=== PATIENT | male | born 1960 | race Caucasian/White ===

== ENCOUNTER → 2018-02-13 18:39 | Outpatient (CLI) | payer OTHER, MEDICAID, SELFPAY ==
--- NOTE | 2018-02-13 | DI.MRI.S_ITS ---
PROCEDURE: MR CERVICAL SPINE WO CON INDICATIONS: CERVICAL SPINE PAIN TECHNIQUE: Noncontrast sagittal T1, T2, and axial T2 sequences of the cervical spine are obtained. Patient was unable to complete the remaining sequences of the examination. COMPARISON: None. FINDINGS: Image quality: Excellent. Alignment and Curvature: There is normal bony alignment. Bone Marrow: Marrow demonstrates normal overall signal. Mild reactive signal within the endplates adjacent to the C6-C7 intervertebral disc. Spinal Cord: Visualized spinal cord has normal size and signal. No cerebellar tonsillar herniation. Paraspinous Soft Tissues: No paravertebral masses. Prevertebral soft tissues are normal in thickness. C2-C3: Disc desiccation. Mild facet hypertrophy bilaterally. Mild canal stenosis. Mild bilateral foraminal stenosis. C3-C4: Congenital canal stenosis. Mild disc loss and desiccation. Mild diffuse disc bulge with superimposed right paracentral and posterolateral disc protrusion. Mild bilateral facet and uncovertebral hypertrophy. Moderate canal stenosis. Mild bilateral foraminal stenosis. Minimal cord flattening. C4-C5: Congenital canal stenosis. Mild disc desiccation and minimal diffuse disc bulge. Mild facet hypertrophy. Mild canal stenosis. Mild bilateral foraminal stenosis. C5-C6: Moderate disc height loss and desiccation. Mild diffuse disc bulge. Congenital canal stenosis. Bilateral facet hypertrophy. Moderate canal stenosis. Mild foraminal stenosis bilaterally. C6-C7: Congenital canal stenosis. Moderate disc height loss and desiccation. Mild diffuse disc bulge. Mild facet hypertrophy bilaterally. Moderate to severe canal stenosis. Minimal cord flattening. Mild foraminal stenosis bilaterally. C7-T1: Normal appearance. IMPRESSION: 1. Limited examination secondary to patient's inability to complete the examination. 2. Diffuse congenital canal stenosis with superimposed degenerative disc and facet disease. 3. Multilevel canal stenoses, worst at C3-C4 and C6-C7, where there is mild cord flattening present. 4. Mild multilevel foraminal stenoses. Dictated by: Isadora Loredo M.D. on 02/14/2018 at 8:54 Approved by: Isadora Loredo M.D. on 02/14/2018 at 8:59
== END ==
PROVIDERS: Visit Provider Orthopaedic Surgery Orthopaedic Surgery of the Spine
DX: M48.02 Spinal stenosis, cervical region (principal); M50.21 Other cervical disc displacement, high cervical region
CPT/HCPCS: 72141

== ENCOUNTER → 2018-05-30 11:10 | Outpatient (CLI) | payer OTHER, MEDICAID, SELFPAY ==
[2018-05-30 12:38] LABS: Add Manual Diff / Slide Review NO; Basophils Absolute Auto 100 /uL (0-100); Basophils Percent Auto 1.2 % (0-2); Eosinophils Absolute Auto 100 /uL (0-450); Hematocrit 46.4 % (41-53); Hemoglobin 15.7 g/dL (13.5-17.5); Lymphocytes Absolute Auto 1800 /uL (1100-4500); Lymphocytes Percent Auto 34.7 % (25-40); Mean Corpuscular HGB Conc 33.9 % (30-36); Mean Corpuscular Hemoglobin 29.2 PG (26-34); Mean Corpuscular Volume 86.1 fL (80-100); Monocytes Absolute Auto 400 /uL (0-900); Monocytes Percent Auto 7.9 % (3-14); Neutrophils Absolute Auto 2800 /uL (1500-7000); Neutrophils Percent Auto 54.2 % (50-75); Platelet Count 221 X10^3/uL (150-400); Red Blood Cell Count 5.39 X10^6/uL (4.5-5.9); Red Cell Distribution Width 13.1 % (11.6-14.8); White Blood Cell Count 5.1 X10^3/uL (4.5-11.0)
[2018-05-30 12:50] LABS: Alanine Aminotransferase 61 IU/L (21-72); Albumin 4.9 g/dL (3.5-5.0); Albumin Globulin Ratio 1.4 (1.0-2.8); Alkaline Phosphatase 69 U/L (38-126); Aspartate Aminotransferase 32 IU/L (17-59); BUN Creatinine Ratio 13.8 (6-22); Bilirubin Total 0.8 mg/dL (0.2-1.3); Blood Urea Nitrogen 11 mg/dL (9-20); Calcium 9.6 mg/dL (8.4-10.2); Carbon Dioxide 24 mmol/L (22-32); Chloride 103 mmol/L (98-107); Cholesterol 189 mg/dL (140-199); Estimated Glomerular Filt Rate > 60.0 mL/min (>60); Globulin 3.5 g/dL (1.7-4.1); Glucose 123 mg/dL (70-100); HDL Cholesterol 41 mg/dL (40-60); HEMOLYSIS < 15 (0-50); LDL Cholesterol Calculated 106 mg/dL (<100); Potassium 4.6 mmol/L (3.4-5.1); Sodium 140 mmol/L (137-145); Total Protein 8.4 g/dL (6.3-8.2); Triglycerides 211 mg/dL (35-150)
[2018-05-30 13:08] LABS: Free T4, Direct Thyroxine 1.39 ng/dL (0.78-2.19)
[2018-05-30 13:20] LABS: Prostate Specific Antigen Scrn 0.402 ng/mL (0.1-4.0)
[2018-05-30 13:21] LABS: Thyroid Stimulating Hormone 2.68 uIU/mL (0.47-4.68)
== END ==
PROVIDERS: PCP Family Medicine; Visit Provider Family Medicine
DX: E03.9 Hypothyroidism, unspecified (principal); E66.9 Obesity, unspecified; Z13.220 Encounter for screening for lipoid disorders; Z51.81 Encounter for therapeutic drug level monitoring; Z12.5 Encounter for screening for malignant neoplasm of prostate
CPT/HCPCS: 36415; 80053; 80061; 84439; 84443; 85025; G0103

== ENCOUNTER 2018-08-04 10:30 | Outpatient (RCR) | payer OTHER, MEDICAID, SELFPAY ==
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
--- NOTE | 2018-03-25 17:18 | PT.OPPOC ---
Current Diagnoses Other secondary scoliosis, lumbar region (03/24/18) Other spondylosis with radiculopathy, cervical region (03/24/18) Muscle weakness (generalized) (03/24/18) Other abnormalities of gait and mobility (03/24/18) Other symptoms and signs involving the musculoskeletal system (03/24/18) Provider Visit Care Team Role Provider Type Kate Singleton MD Attending Provider Physician Specialty: Orthopedic Surgery Address: [address] [place] [address], [phone] Email: [email or web address] Plan Of Care PT-OP-T Assessment and Plan Start: 03/24/18 16:28 Freq: Status: Active Protocol: Document 03/24/18 11:36 LRN (Rec: 03/24/18 17:00 LRN [id number]) Physical Therapy Assessment Rehab Potential Rehabilitation Potential Fair Evaluation Complexity Number of Personal Factors/Comorbidities 1-2 Number of Body Systems Impaired 3 Clinical Presentation at Evaluation Evolving Impairments Impairments Activity Tolerance Functional Activities Functional Mobility Gait Pain Posture ROM Soft Tissue Mobility Strength Other Concerns Fall Risk No Age Related Concerns Effect of injury on self and home. Barriers to Rehabilitation Chronicity of condition Goals Four Impairment Severe pain causing the pt to focus on his pain preventing project work Prison Goal (LTG) Pt will be able to concentrate on home/work projects with reduction of general pain. Three Impairment Decreased hip rotation mobility limiting ability to dress (don socks) Short Term Goal (STG) Pt will improve his hip ER mobility to be able to don his socks with less difficulty. STG Duration 05/14/09 Two Impairment R hip pain limiting ability to walk Prison Goal (LTG) Pt will be able to walk to and from a grocery store and shop with the use of a shopping cart. LTG Duration 06/16/18 One Impairment Lacks self care HEP Science Technician Goal (LTG) Pt will be independent with a self care HEP LTG Duration 06/16/18 Assessment Summary Assessment Pt presents with complaints of full body pain in the neck, shoulders, trunk, hips, and lower extremities that is variable based on location between 0-8/10, with 10 being worst possible pain. The pt would like to focus first on improving his walking ability by decreasing his R hip pain. He is limited in trunk mobility and to a lesser extent cervical mobility. He is only able to actively perform shoulder ER to neutral in sitting, presenting like a rotator cuff injury, and he is quite limited in his ability to reach overhead. The pt is limited in visits by his insurance; therefore achieving his goals may be difficult. The pt may benefit from treatment starting at 2x /week and decrease to 1x/week once he has been started on a home program. The pt will benefit from skilled physical therapy to decrease pain, improve function and progress onto a self care program of home and aquatic exercises. Physical Therapy Plan Frequency and Duration Frequency of Treatment 2x/Week Plan of Care Start Date 03/24/18 Plan of Care End Date 06/16/18 Therapeutic Interventions Therapeutic Interventions Aquatic Therapy Home Exercise Program Manual Therapy Neuromuscular Re-education Patient/Caregiver Education Self-Care/Home Management Soft Tissue Mobilization Taping Therapeutic Activities Therapeutic Exercises Modalities Cold Pack/Ice Massage Electric Stimulation Hot Packs Next Visit Focus/Plan Next Note Type Treatment Note Next Visit Plan Check shoulder ER and hip rotation strength, gait training for level and stairs, initiate HEP: hip stretches, Fernando ext ex program, Core/ abdominal strengthening, ending CP. Focus on strengthening and normalizing posture with limited use of modalities and STM. Plan of Care Dates Plan of Care Start Date 03/24/18 Plan of Care End Date 06/16/18 Please Sign and Return: I have reviewed this Plan of Care and certify that the skilled therapy services above are required to meet the patient?s needs. Physician Signature Date Printed Name and Credentials Clinical Instructor Signature Printed Name and Credentials
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
--- NOTE | 2018-12-09 12:26 | PT-OP ANOTE ---
Pt has received a new referral from another physician; therefore pt will need to be discharged from therapy for new referral.
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
== END 2018-12-10 14:09 | disposition home or self-care (01) ==
LOC: PHYS 10:30
PROVIDERS: Visit Provider Orthopaedic Surgery Orthopaedic Surgery of the Spine
DX: M47.22 Other spondylosis with radiculopathy, cervical region (principal); M41.56 Other secondary scoliosis, lumbar region
CPT/HCPCS: 97010; 97014; 97110; 97140; 97162; 97535; G0283

== ENCOUNTER → 2018-11-20 12:35 | Outpatient (CLI) | payer OTHER, MEDICAID, SELFPAY ==
[2018-11-20 13:15] LABS: Hematocrit 40.9 % (41-53); Hemoglobin 14.2 g/dL (13.5-17.5); Mean Corpuscular HGB Conc 34.6 % (30-36); Mean Corpuscular Hemoglobin 29.5 PG (26-34); Mean Corpuscular Volume 85.1 fL (80-100); Platelet Count 248 X10^3/uL (150-400); Red Blood Cell Count 4.81 X10^6/uL (4.5-5.9); Red Cell Distribution Width 12.5 % (11.6-14.8); White Blood Cell Count 5.1 X10^3/uL (4.5-11.0)
[2018-11-20 13:41] LABS: Hemoglobin A1C% w Est Avg Glu 6.1 % (4.0-6.0)
== END ==
PROVIDERS: PCP Family Medicine; Visit Provider Family Medicine
DX: E03.9 Hypothyroidism, unspecified (principal); R73.9 Hyperglycemia, unspecified; E66.9 Obesity, unspecified; R53.83 Other fatigue; Z51.81 Encounter for therapeutic drug level monitoring
CPT/HCPCS: 36415; 83036; 84403; 85027

== ENCOUNTER → 2019-09-29 10:26 | Outpatient (CLI) | payer OTHER, MEDICAID, SELFPAY ==
[2019-09-29 11:31] LABS: Add Manual Diff / Slide Review NO; Basophils Absolute Auto 0 /uL (0-100); Basophils Percent Auto 0.9 % (0-2); Eosinophils Absolute Auto 100 /uL (0-450); Eosinophils Percent Auto 1.8 % (2-4); Hematocrit 43.7 % (41-53); Hemoglobin 14.9 g/dL (13.5-17.5); Lymphocytes Absolute Auto 1600 /uL (1100-4500); Lymphocytes Percent Auto 33.3 % (25-40); Mean Corpuscular HGB Conc 34.1 % (30-36); Mean Corpuscular Hemoglobin 29.5 PG (26-34); Mean Corpuscular Volume 86.5 fL (80-100); Monocytes Absolute Auto 400 /uL (0-900); Monocytes Percent Auto 9.2 % (3-14); Neutrophils Absolute Auto 2600 /uL (1500-7000); Neutrophils Percent Auto 54.8 % (50-75); Platelet Count 215 X10^3/uL (150-400); Red Blood Cell Count 5.05 X10^6/uL (4.5-5.9); Red Cell Distribution Width 13.4 % (11.6-14.8); White Blood Cell Count 4.8 X10^3/uL (4.5-11.0)
[2019-09-29 12:06] LABS: Alanine Aminotransferase 34 IU/L (<50); Albumin 4.5 g/dL (3.5-5.0); Albumin Globulin Ratio 1.5 (1.0-2.8); Alkaline Phosphatase 70 U/L (38-126); Aspartate Aminotransferase 26 IU/L (17-59); BUN Creatinine Ratio 13.1 (6-22); Bilirubin Total 0.7 mg/dL (0.2-1.3); Blood Urea Nitrogen 11 mg/dL (9-20); Calcium 9.6 mg/dL (8.4-10.2); Carbon Dioxide 27 mmol/L (22-32); Chloride 104 mmol/L (98-107); Cholesterol 167 mg/dL (140-199); Estimated Glomerular Filt Rate > 60.0 mL/min (>60); Glucose 135 mg/dL (70-100); HDL Cholesterol 37 mg/dL (40-60); HEMOLYSIS < 15 (0-50); LDL Cholesterol Calculated 103 mg/dL (<100); Potassium 4.6 mmol/L (3.4-5.1); Sodium 139 mmol/L (137-145); Total Protein 7.5 g/dL (6.3-8.2); Triglycerides 136 mg/dL (35-150)
[2019-09-29 12:15] LABS: Vitamin D 25 Hydroxy (D3) 47.7 ng/mL (30.0-100.0)
[2019-09-29 12:17] LABS: Free T3, Triiodothyronine Free 3.56 pg/mL (2.77-5.27)
[2019-09-29 12:31] LABS: Thyroid Stimulating Hormone 3.29 uIU/mL (0.47-4.68)
[2019-09-29 12:32] LABS: Prostate Specific Antigen 0.322 ng/mL (0.10-4.00)
[2019-09-30 12:18] LABS: Hemoglobin A1C% w Est Avg Glu 6.4 % (4.0-6.0)
[2019-10-03 17:07] LABS: Testosterone Free 5.38 ng/dL (5.00-21.00); Testosterone Total 179.4 ng/dL (264.0-916.0)
== END ==
PROVIDERS: Nurse Practitioner Family; PCP Family Medicine; Referring Provider Family Medicine; Visit Provider Family Medicine
DX: Z12.5 Encounter for screening for malignant neoplasm of prostate (principal); R53.83 Other fatigue; R79.89 Other specified abnormal findings of blood chemistry; E03.9 Hypothyroidism, unspecified; Z13.220 Encounter for screening for lipoid disorders; Z68.41 Body mass index [BMI] 40.0-44.9, adult; R73.09 Other abnormal glucose
CPT/HCPCS: 36415; 80053; 80061; 82306; 83036; 84153; 84402; 84403; 84439; 84443; 84481; 85025

== ENCOUNTER → 2020-02-10 13:03 | Outpatient (CLI) | payer OTHER, MEDICAID, SELFPAY ==
[2020-02-16 07:17] LABS: Percent Free Testosterone 4.54 % (1.50-4.20); Testosterone Free 21.13 ng/dL (5.00-21.00); Testosterone Total 465.4 ng/dL (264.0-916.0)
== END ==
PROVIDERS: PCP Family Medicine; Referring Provider Family Medicine; Visit Provider Family Medicine
DX: E29.1 Testicular hypofunction (principal)
CPT/HCPCS: 36415; 84402; 84403

== ENCOUNTER → 2020-02-16 11:28 | Outpatient (CLI) | payer OTHER, MEDICAID, SELFPAY ==
[2020-02-16 13:12] LABS: Add Manual Diff / Slide Review NO; Basophils Absolute Auto 100 /uL (0-100); Basophils Percent Auto 1.1 % (0-2); Eosinophils Absolute Auto 100 /uL (0-450); Eosinophils Percent Auto 1.9 % (2-4); Hematocrit 47.4 % (41-53); Hemoglobin 15.6 g/dL (13.5-17.5); Lymphocytes Absolute Auto 1500 /uL (1100-4500); Lymphocytes Percent Auto 26.8 % (25-40); Mean Corpuscular HGB Conc 32.9 % (30-36); Mean Corpuscular Hemoglobin 29.3 PG (26-34); Mean Corpuscular Volume 88.9 fL (80-100); Monocytes Absolute Auto 500 /uL (0-900); Monocytes Percent Auto 8.9 % (3-14); Neutrophils Absolute Auto 3500 /uL (1500-7000); Neutrophils Percent Auto 61.3 % (50-75); Platelet Count 227 X10^3/uL (150-400); Red Blood Cell Count 5.34 X10^6/uL (4.5-5.9); Red Cell Distribution Width 13.5 % (11.6-14.8); White Blood Cell Count 5.7 X10^3/uL (4.5-11.0)
[2020-02-16 13:23] LABS: Hemoglobin A1C% w Est Avg Glu 6.1 % (4.0-6.0)
[2020-02-16 13:45] LABS: Alanine Aminotransferase 36 IU/L (<50); Albumin 4.4 g/dL (3.5-5.0); Albumin Globulin Ratio 1.4 (1.0-2.8); Alkaline Phosphatase 70 U/L (38-126); Aspartate Aminotransferase 30 IU/L (17-59); BUN Creatinine Ratio 8.9 (6-22); Bilirubin Total 0.9 mg/dL (0.2-1.3); Blood Urea Nitrogen 8 mg/dL (9-20); Carbon Dioxide 32 mmol/L (22-32); Chloride 102 mmol/L (98-107); Cholesterol 158 mg/dL (140-199); Estimated Glomerular Filt Rate > 60.0 mL/min (>60); Globulin 3.2 g/dL (1.7-4.1); Glucose 122 mg/dL (70-100); HDL Cholesterol 29 mg/dL (40-60); HEMOLYSIS < 15 (0-50); LDL Cholesterol Calculated 99 mg/dL (<100); Potassium 4.6 mmol/L (3.4-5.1); Sodium 138 mmol/L (137-145); Total Protein 7.6 g/dL (6.3-8.2); Triglycerides 149 mg/dL (35-150)
[2020-02-16 14:01] LABS: Free T3, Triiodothyronine Free 4.14 pg/mL (2.77-5.27); Free T4, Direct Thyroxine 1.44 ng/dL (0.78-2.19)
[2020-02-16 14:14] LABS: Thyroid Stimulating Hormone 2.45 uIU/mL (0.47-4.68)
== END ==
PROVIDERS: PCP Family Medicine; Referring Provider Family Medicine; Visit Provider Family Medicine
DX: E03.9 Hypothyroidism, unspecified (principal); E29.1 Testicular hypofunction; E55.9 Vitamin D deficiency, unspecified; E78.6 Lipoprotein deficiency; R73.03 Prediabetes; Z68.41 Body mass index [BMI] 40.0-44.9, adult
CPT/HCPCS: 36415; 80053; 80061; 82306; 83036; 84439; 84443; 84481; 85025

== ENCOUNTER → 2020-03-18 13:32 | Outpatient (CLI) | payer OTHER, MEDICAID, SELFPAY ==
[2020-03-23 05:13] LABS: Testosterone Free 17.42 ng/dL (5.00-21.00)
== END ==
PROVIDERS: PCP Family Medicine; Referring Provider Family Medicine; Visit Provider Family Medicine
DX: E29.1 Testicular hypofunction (principal)
CPT/HCPCS: 36415; 84402; 84403

== ENCOUNTER 2020-04-14 12:45 | Outpatient (RCR) | payer OTHER, MEDICAID, SELFPAY ==
--- NOTE | 2019-11-23 17:51 | PT.OPPOC ---
Physical, Occupational & Speech Therapy At [facility] Current Diagnoses Primary osteoarthritis, right shoulder (11/23/19) Muscle weakness (generalized) (11/23/19) Abnormal posture (11/23/19) Visit Care Team Role Provider Type Cristofer Alvarez DO Primary Care Provider Physician Specialty: Family Practice Address: [address] [place] [address], [address] Email: Devon Patterson MD Attending Provider Physician Referring Provider Specialty: Orthopedic Surgery Address: [address] [place] [address], [address] Email: [email or web address] Plan Of Care PT-OP-T Assessment and Plan Start: 11/20/19 20:07 Freq: Status: Active Protocol: Document 11/23/19 09:06 LRN (Rec: 11/23/19 20:30 LRN [id number]) Physical Therapy Assessment Rehab Potential Rehabilitation Potential Good Evaluation Complexity Number of Personal Factors/Comorbidities 3 or More Number of Body Systems Impaired 4 or More Clinical Presentation at Evaluation Evolving Impairments Impairments Activity Tolerance,Pain, Posture,ROM,Soft Tissue Mobility,Strength Other Impairments BMI 40-44.9 Goals Four Impairment R shoulder pain rated 0-3/10. Short Term Goal (STG) Pt will be able to take his T- shirt off with pain no greater than 1/10. STG Duration 01/30/20 [employer] Mill Worker Goal (LTG) Pt will decrease pain to on greater than 1/10 with reaching activities. LTG Duration 02/21/20 Three Impairment Decreased R shoulder strength Short Term Goal (STG) Pt will be able to lift > 5# with both arms without an increase in pain no greater than 1/10. Custodial Goal (LTG) Pt will increase R shoulder strength to 4/5 (except ER) to decrease sleep disturbance to 6 at night. LTG Duration 02/21/20 Two Impairment Decreased R shoulder mobility Paper And Pulp Mill Worker Goal (LTG) Improve R shoulder mobility so that pt will be able to wash the top of his head. LTG Duration 02/21/20 One Impairment Lacks self care HEP Custodial Goal (LTG) Pt will be independent with a self care HEP LTG Duration 02/21/20 Assessment Summary Assessment Pt presents with R shoulder pain that has improved quite a bit according to the pt since receiving 2 cortisone injections in his shoulder and back 3 weeks ago. The pt presents today with poor scapulohumeral rhythm due to muscle imbalance of his rotator cuff muscles bilaterally. He is not able to actively externally rotate his arm beyond neutral both active and passively due to pain. It is unknown what type of muscle dysfunction he has without imaging information. The pt also presents with a mechanical dysfunction of the spine that will hinder his progress. The pt is also interested in having physical therapy for his hips in hopes of resuming walking activities ; therefore perhaps after his shoulder program he could be assessed for appropriateness of a rehab program for his hips. The pt is limited in his insurance benefits; therefore he will be progressed as far as he can tolerate and will be educated in a HEP to promote ongoing improvement with self care. The pt will benefit from skilled physical therapy to improve his shoulder strength and mobility and for education on a self care HEP. Physical Therapy Plan Frequency and Duration Frequency of Treatment 2x/Week Plan of Care Start Date 11/23/19 Plan of Care End Date 02/21/20 Therapeutic Interventions Therapeutic Interventions Home Exercise Program,Manual Therapy,Neuromuscular Re- education,Patient/Caregiver Education,Self-Care/Home Management,Soft Tissue Mobilization,Taping, Therapeutic Activities, Therapeutic Exercises Modalities Cold Pack/Ice Massage,Electric Stimulation,Hot Packs Other Referrals/Consults Referrals/Consults Recommended Recommend medical assessment for his hips for appropriateness of PT for rehabilitation. Next Visit Focus/Plan Next Note Type Treatment Note Next Visit Plan Initiate gentle rotator cuff and scapular stabilization strengthening exercises, progressing the pt onto a HEP. Modalities as needed for pain management (cryotherapy or heat), STM for neck/upper back and aerobic ex to improve functional use of UE's. Plan of Care Dates Plan of Care Start Date 11/23/19 Plan of Care End Date 02/21/20 Electronically Signed by: Rosa James, PT 11/25/19 [id number] Please Sign and Return: I have reviewed this Plan of Care and certify that the skilled therapy services above are required to meet the patient?s needs. Physician Signature Date Printed Name and Credentials Clinical Instructor Signature Printed Name and Credentials
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
--- NOTE | 2019-12-25 10:26 | PT-OP ANOTE ---
Pt DNS, unable to reach pt by phone to remind of next appt, due to full mailbox.
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
== END 2020-04-22 14:33 ==
LOC: PHYS 12:45
PROVIDERS: PCP Family Medicine; Referring Provider Orthopaedic Surgery; Visit Provider Orthopaedic Surgery
DX: M19.011 Primary osteoarthritis, right shoulder (principal); M62.81 Muscle weakness (generalized); R29.3 Abnormal posture; M19.012 Primary osteoarthritis, left shoulder; M16.11 Unilateral primary osteoarthritis, right hip; M43.02 Spondylolysis, cervical region; M43.06 Spondylolysis, lumbar region
CPT/HCPCS: 97014; 97110; 97162; 97164; 97535; G0283

== ENCOUNTER 2020-07-14 14:09 | Emergency (ER) | payer OTHER, MEDICAID, SELFPAY ==
[2020-07-14 14:18] VITALS: BP 158/94; PULSE 84; RESP 17; TEMP 36.6; O2SAT 95; BMI 40.1
--- NOTE | 2020-07-14 14:26 | ED.BACK ---
HPI - Back Pain/Injury General Chief Complaint: Back Pain/Injury Stated Complaint: thinks he has kidney stones past week Time Seen by Provider: 07/14/20 14:11 Source: patient Mode of arrival: Ambulatory Limitations: no limitations History of Present Illness HPI Narrative: Patient is a 60-year-old male here for evaluation of occasional left-sided flank pain and urinary hesitancy. He states that it has been going on for the past several weeks. Has been occasional during this time. No fevers. He has had kidney stones in the past and he states this feels very much like prior kidney stone. He denies any blood in his urine. Has no abdominal tenderness. He is here making sure that he does not have a urinary tract infection that would require antibiotics. Related Data Home Medications Medication Instructions Recorded Confirmed [MAgnesium] #0 07/10/17 06/02/20 [Vitamin B] #0 07/10/17 06/02/20 ascorbic acid (vitamin C) 500 mg mg PO cap 08/20/17 06/02/20 capsule cholecalciferol (vitamin D3) 50 2,000 unit PO DAILY 08/20/17 06/02/20 mcg (2,000 unit) capsule iodine 150 mcg tablet mcg PO tab 12/02/18 06/02/20 levothyroxine 50 mcg PO DAILY 07/14/20 07/14/20 Previous Rx's Medication Instructions Recorded testosterone cypionate 200 mg/mL 200 mg IM Q2W #1 ml 03/29/20 intramuscular oil Allergies Allergy/AdvReac Type Severity Reaction Status Date / Time codeine [CODEINE] Allergy Intermediate Racing Verified 07/14/20 14:23 heart Review of Systems Constitutional Constitutional: Denies fever(s) and Denies headache(s) ENT Ears, Nose, Mouth, and Throat: Denies headache(s) Cardiovascular Cardiovascular: Denies chest pain and Denies dyspnea Respiratory Respiratory: Denies dyspnea Gastrointestinal Gastrointestinal: Reports abdominal pain, Denies nausea and Denies vomiting Integumentary/Breasts Skin/Breast: Denies rash Neurologic Neurologic: Denies behavioral changes and Denies headache(s) Psychiatric Psychiatric: Denies behavioral changes Hematologic/Lymphatic On Anticoagulants: No Allergic/Immunologic Allergic/Immunologic: Denies urticaria Patient History Medical History Acne (Unknown) Acute pain of right knee Ankle pain (2015) BMI 40.0-44.9, adult Cervical somatic dysfunction Cervical spine disease (2015) Chickenpox (~1965) Chronic back pain (2015) Chronic right hip pain Chronic thoracic back pain Cranial somatic dysfunction Foot pain (2018) Greater trochanteric bursitis of right hip Hypogonadism in male Hypothyroidism (Unknown) Iliotibial band syndrome, right leg Kidney stones (~1989) Knee pain (2015) Low back pain of over 3 months duration Low HDL (under 40) Lumbar region somatic dysfunction Mumps (1968) Pelvic somatic dysfunction Pelvic somatic dysfunction Postconcussion syndrome Pre-diabetes Sacral region somatic dysfunction Screening for hyperlipidemia Segmental and somatic dysfunction of abdomen and other regions Segmental and somatic dysfunction of lower extremity Segmental and somatic dysfunction of lumbar region Segmental and somatic dysfunction of sacral region Segmental and somatic dysfunction of thoracic region Shoulder pain (2014) Upper extremity somatic dysfunction Vestibular dysfunction Vitamin D deficiency Weight loss counseling, encounter for Surgical History Hx of appendectomy (1976) Hx of tonsillectomy (1978) Family History (Updated 10/30/17 @ 10:37 by Kalani Ortega LPN) Brother Age: 54 Back problem Father Age: 85 Parkinson disease Celiac disease Mother Age: 79 Diabetes mellitus Hypothyroid Sister Thyroid condition Grandfather Rheumatoid arthritis Grandmother Diabetes mellitus Hypothyroid Grandmother No problems noted. Social History Smoking Status: Never smoker Smoking Status: Never smoker alcohol intake frequency: other Substance Use Type: does not use Exam Initial Vital Signs Initial Vital Signs: Vital Signs Temperature 97.8 F 07/14/20 14:18 Pulse Rate 84 07/14/20 14:18 Respiratory Rate 17 07/14/20 14:18 Blood Pressure 158/94 H 07/14/20 14:18 Pulse Oximetry 95 07/14/20 14:18 Const General: cooperative and comfortable Limitations: mental status not altered HENMT Head: normal to inspection and normocephalic Resp Effort & Inspection: normal respiratory effort GI Inspection: non-distended Palpation: soft, No firm and No tender Back/Spine/Pelvis Back: No CVA tenderness Skin Rashes: no rashes Neuro General: patient alert and patient awake Cognition: normal cognition Speech: speech normal Extrem General: capillary refill normal Psych Appearance: grossly normal and well kempt Course Orders Ordered: ED Orders 07/14/20 14:11 Basic Metabolic Panel Stat Complete Blood Count AUTO DIFF Stat Vital Signs Vital signs: Vital Signs - 8 hr 07/14/20 14:18 Temperature 97.8 F Pulse Rate 84 Respiratory Rate 17 Blood Pressure 158/94 H Pulse Oximetry 95 MDM - Back Pain/Injury Lab Data Attestation: I reviewed the patient's lab results. Labs: Urine Dip Bedside Urine Glucose Negative Bedside Urine Bilirubin - Negative Bedside Urine Ketone - Negative Urine Specific [place] 1.030 Bedside Urine Occult Blood - Negative Bedside Urine pH 6.0 Bedside Urine Protein - Negative Bedside Urine Urobilinogen - Negative Bedside Urine Nitrite - Negative Bedside Urine Leukocytes - Negative Esterase MDM Narrative Medical decision making narrative: Patient's urinalysis today does not show any signs of infection. Also does not have any blood in his urine I discussed with him that he still could potentially be having kidney stones potentially he is having multiple small stones that he is passing on a regular basis. We discussed that we would not know this definitively unless we did a CT scan. He expressed understanding of this boat like to hold on any radiologic studies for now. He states that long as he does not need any antibiotics based on full we have done so far that he would rather be discharged home or return to the emergency department things worsen. He was given return precautions. He expressed understanding agreement. Discharge Plan Departure Patient Disposition: Home Clinical Impression: Side pain Instructions: DI for Kidney Stones Activity Restrictions/Additional Instructions: Continue all of your medications as directed. Contact her primary provider for follow-up. Return to the emergency department for any new or worsening symptoms. Prescriptions: No Action ascorbic acid (vitamin C) 500 mg capsule PO RF: 0 cholecalciferol (vitamin D3) 2,000 unit capsule 2,000 unit PO DAILY RF: 0 [MAgnesium] Qty: 0 RF: 0 [Vitamin B] Qty: 0 RF: 0 iodine 150 mcg tablet PO RF: 0 testosterone cypionate [Depo-Testosterone] 200 mg/mL oil 200 mg IM Q2W Qty: 1 RF: 5 levothyroxine 50 mcg tablet 50 mcg PO DAILY RF: 0 Referrals: Cristofer Alvarez DO [Primary Care Provider] -
== END 2020-07-14 14:41 | disposition home or self-care (01) ==
PROVIDERS: Emergency Provider Emergency Medicine; PCP Family Medicine
DX: M54.9 Dorsalgia, unspecified (principal)
CPT/HCPCS: 81003; 99281; 99283

== ENCOUNTER → 2020-08-15 13:08 | Outpatient (CLI) | payer OTHER, MEDICAID, SELFPAY ==
--- NOTE | 2020-08-15 13:09 | DI.US.S_ITS ---
ULTRASOUND OF LEFT AXILLA: 08/15/2020 CLINICAL: Palpable left axilla lump. No prior exams were available for comparison. Color flow and real-time ultrasound of the left axilla were performed. Vazquez scale images of the real-time examination were reviewed. There is a 0.4 cm x 0.3 cm x 0.2 cm superficial oval cyst in the left axilla. This oval cyst is hypoechoic with no posterior acoustic shadowing or enhancement. This correlates as palpated. Color flow imaging demonstrates that there is an adjacent vascularity. IMPRESSION: BENIGN There is no sonographic evidence of malignancy. The 0.4 cm superficial oval cyst or skin lesion is most likely a sebaceous cyst and is benign. Patient reports an interval decrease in size. Exam findings were conveyed to the patient. Patient is advised to monitor for significant change. Clinical follow-up is recommended. This exam was interpreted at Station ID: [id number]. Electronically Signed By: Edis Hinson M.D. slc/:08/15/2020 14:03:38 letter sent: Clinical Evaluation Ultrasound BI-RADS: 2 Benign
== END ==
PROVIDERS: PCP Family Medicine; Referring Provider Registered Nurse Diabetes Educator; Visit Provider Registered Nurse Diabetes Educator
DX: R22.32 Localized swelling, mass and lump, left upper limb (principal); L72.9 Follicular cyst of the skin and subcutaneous tissue, unspecified
CPT/HCPCS: 76882

== ENCOUNTER → 2022-01-11 09:48 | Outpatient (CLI) | payer OTHER, MEDICAID, SELFPAY ==
[2022-01-11 10:45] LABS: Add Manual Diff / Slide Review NO; Basophils Absolute Auto 100 /uL (0-100); Basophils Percent Auto 1.2 % (0-2); Eosinophils Absolute Auto 200 /uL (0-450); Eosinophils Percent Auto 3.4 % (2-4); Hematocrit 43.4 % (41-53); Hemoglobin 14.8 g/dL (13.5-17.5); Lymphocytes Absolute Auto 1700 /uL (1100-4500); Lymphocytes Percent Auto 34.3 % (25-40); Mean Corpuscular HGB Conc 34.1 % (30-36); Mean Corpuscular Hemoglobin 29.5 PG (26-34); Mean Corpuscular Volume 86.5 fL (80-100); Monocytes Absolute Auto 500 /uL (0-900); Monocytes Percent Auto 9.6 % (3-14); Neutrophils Absolute Auto 2500 /uL (1500-7000); Neutrophils Percent Auto 51.5 % (50-75); Platelet Count 218 X10^3/uL (150-400); Red Blood Cell Count 5.02 X10^6/uL (4.5-5.9); Red Cell Distribution Width 13.7 % (11.6-14.8); White Blood Cell Count 4.8 X10^3/uL (4.5-11.0)
[2022-01-11 11:01] LABS: Hemoglobin A1C% w Est Avg Glu 6.1 % (4.0-6.0)
[2022-01-11 11:07] LABS: Alanine Aminotransferase 37 IU/L (<50); Albumin 4.4 g/dL (3.5-5.0); Albumin Globulin Ratio 1.4 (1.0-2.8); Alkaline Phosphatase 69 U/L (38-126); Aspartate Aminotransferase 26 IU/L (17-59); BUN Creatinine Ratio 18.3 (6-22); Bilirubin Total 0.7 mg/dL (0.2-1.3); Blood Urea Nitrogen 15 mg/dL (9-20); Calcium 9.2 mg/dL (8.4-10.2); Carbon Dioxide 25 mmol/L (22-32); Chloride 105 mmol/L (98-107); Cholesterol 189 mg/dL (140-199); Estimated Glomerular Filt Rate > 60 mL/min (>60); Globulin 3.2 g/dL (1.7-4.1); Glucose 131 mg/dL (80-110); HDL Cholesterol 44 mg/dL (40-60); HEMOLYSIS < 15 (0-50); LDL Cholesterol Calculated 118 mg/dL (<100); Potassium 4.5 mmol/L (3.4-5.1); Sodium 142 mmol/L (137-145); Total Protein 7.6 g/dL (6.3-8.2); Triglycerides 133 mg/dL (35-150)
[2022-01-11 11:34] LABS: TSH w/ Reflex to FT4 2.73 uIU/mL (0.47-4.68)
== END ==
PROVIDERS: PCP Family Medicine; Referring Provider Family Medicine; Visit Provider Family Medicine
DX: E03.9 Hypothyroidism, unspecified (principal); E78.6 Lipoprotein deficiency; R73.03 Prediabetes; Z13.220 Encounter for screening for lipoid disorders
CPT/HCPCS: 36415; 80053; 80061; 83036; 84443; 85025

== ENCOUNTER → 2022-12-14 16:56 | Outpatient (CLI) | payer OTHER, MEDICAID, SELFPAY | PROVIDERS: PCP Family Medicine; Visit Provider Physician Assistant | DX: M54.9 Dorsalgia, unspecified (principal) | CPT/HCPCS: 81002; 87086 ==

== ENCOUNTER → 2022-12-25 16:43 | Outpatient (CLI) | payer OTHER, MEDICAID, SELFPAY ==
[2022-12-25 17:10] LABS: Add Manual Diff / Slide Review NO; Basophils Absolute Auto 100 /uL (0-100); Basophils Percent Auto 0.9 % (0-2); Eosinophils Absolute Auto 100 /uL (0-450); Hematocrit 44.3 % (41-53); Hemoglobin 14.9 g/dL (13.5-17.5); Lymphocytes Absolute Auto 1500 /uL (1100-4500); Lymphocytes Percent Auto 12.8 % (25-40); Mean Corpuscular HGB Conc 33.7 % (30-36); Mean Corpuscular Hemoglobin 28.9 PG (26-34); Mean Corpuscular Volume 85.8 fL (80-100); Monocytes Absolute Auto 1100 /uL (0-900); Neutrophils Absolute Auto 9000 /uL (1500-7000); Neutrophils Percent Auto 76.3 % (50-75); Platelet Count 307 X10^3/uL (150-400); Red Blood Cell Count 5.17 X10^6/uL (4.5-5.9); Red Cell Distribution Width 13.1 % (11.6-14.8); White Blood Cell Count 11.8 X10^3/uL (4.5-11.0)
[2022-12-25 17:46] LABS: Alanine Aminotransferase 24 IU/L (<50); Albumin 4.6 g/dL (3.5-5.0); Albumin Globulin Ratio 1.2 (1.0-2.8); Alkaline Phosphatase 87 U/L (38-126); Aspartate Aminotransferase 24 IU/L (17-59); BUN Creatinine Ratio 23.7 (6-22); Bilirubin Total 0.7 mg/dL (0.2-1.3); Blood Urea Nitrogen 22 mg/dL (9-20); Calcium 9.5 mg/dL (8.4-10.2); Carbon Dioxide 23 mmol/L (22-32); Chloride 101 mmol/L (98-107); Estimated Glomerular Filt Rate > 60 mL/min (>60); Globulin 3.9 g/dL (1.7-4.1); Glucose 149 mg/dL (80-110); HEMOLYSIS < 15 (0-50); Potassium 4.4 mmol/L (3.4-5.1); Sodium 137 mmol/L (137-145); Total Protein 8.5 g/dL (6.3-8.2)
== END ==
PROVIDERS: PCP Family Medicine; Referring Provider Physician Assistant; Visit Provider Physician Assistant
DX: B35.4 Tinea corporis (principal)
CPT/HCPCS: 36415; 80053; 83036; 85025

== ENCOUNTER → 2022-12-28 13:32 | Outpatient (CLI) | payer OTHER, MEDICAID, SELFPAY | PROVIDERS: PCP Family Medicine; Referring Provider Physician Assistant; Visit Provider Physician Assistant | DX: R21 Rash and other nonspecific skin eruption (principal); L53.9 Erythematous condition, unspecified; R73.03 Prediabetes; E03.9 Hypothyroidism, unspecified; E66.01 Morbid (severe) obesity due to excess calories; Z68.38 Body mass index [BMI] 38.0-38.9, adult | CPT/HCPCS: 99203; 99213 ==

== ENCOUNTER → 2022-12-31 17:36 | Outpatient (CLI) | payer OTHER, MEDICAID, SELFPAY | PROVIDERS: PCP Family Medicine; Visit Provider Student in an Organized Health Care Education/Training Program | DX: R10.9 Unspecified abdominal pain (principal) | CPT/HCPCS: 87086 ==

== ENCOUNTER → 2022-12-31 17:41 | Outpatient (CLI) | payer OTHER, MEDICAID, SELFPAY ==
--- NOTE | 2022-12-31 17:47 | DI.RAD.S_ITS ---
PROCEDURE: XR KUB INDICATIONS: R flank pain sharp intermittent hx ureterolith/ appendectomy TECHNIQUE: One view of the abdomen acquired. COMPARISON: None. FINDINGS: Surgical changes and devices: None. Bowel: Bowel gas pattern is normal. Soft tissues: No suspicious abdominal calcifications. Visualized solid organ contours appear normal in size. Bones: No suspicious bony lesions. Scoliotic curvature of the included spine with multilevel degenerative changes. IMPRESSION: Nonobstructive bowel gas pattern. No definite renal or ureteral calculus radiographically. Approved by: Vicetne Tamayo M.D. on 12/31/2022 at 18:37
== END ==
PROVIDERS: PCP Family Medicine; Referring Provider Student in an Organized Health Care Education/Training Program; Visit Provider Student in an Organized Health Care Education/Training Program
DX: R10.9 Unspecified abdominal pain (principal)
CPT/HCPCS: 74018; 81002; 87086

== ENCOUNTER → 2023-01-04 14:52 | Outpatient (CLI) | payer OTHER, MEDICAID, SELFPAY | PROVIDERS: PCP Family Medicine; Referring Provider Physician Assistant; Visit Provider Surgery | DX: L98.491 Non-pressure chronic ulcer of skin of other sites limited to breakdown of skin (principal); B35.6 Tinea cruris | CPT/HCPCS: 99213 ==

== ENCOUNTER → 2023-01-07 13:33 | Outpatient (CLI) | payer OTHER, MEDICAID, SELFPAY ==
[2023-01-07 17:10] LABS: TSH w/ Reflex to FT4 1.44 uIU/mL (0.47-4.68)
== END ==
PROVIDERS: PCP Family Medicine; Referring Provider Physician Assistant; Visit Provider Physician Assistant
DX: E03.9 Hypothyroidism, unspecified (principal)
CPT/HCPCS: 36415; 84443

== ENCOUNTER → 2023-10-31 10:13 | Outpatient (CLI) | payer OTHER, MEDICAID, SELFPAY ==
--- NOTE | 2023-10-31 10:29 | EKG_ITS ---
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
[2023-10-31 12:16] LABS: Add Manual Diff / Slide Review NO; Basophils Absolute Auto 100 /uL (0-100); Basophils Percent Auto 1.4 % (0-2); Eosinophils Absolute Auto 200 /uL (0-450); Eosinophils Percent Auto 3.5 % (2-4); Hemoglobin 14.1 g/dL (13.5-17.5); Lymphocytes Absolute Auto 1600 /uL (1100-4500); Lymphocytes Percent Auto 35.5 % (25-40); Mean Corpuscular HGB Conc 33.6 % (30-36); Mean Corpuscular Hemoglobin 29.1 PG (26-34); Mean Corpuscular Volume 86.5 fL (80-100); Monocytes Absolute Auto 400 /uL (0-900); Monocytes Percent Auto 9.4 % (3-14); Neutrophils Absolute Auto 2300 /uL (1500-7000); Neutrophils Percent Auto 50.2 % (50-75); Platelet Count 205 X10^3/uL (150-400); Red Blood Cell Count 4.85 X10^6/uL (4.5-5.9); Red Cell Distribution Width 13.5 % (11.6-14.8); White Blood Cell Count 4.5 X10^3/uL (4.5-11.0)
[2023-10-31 13:04] LABS: Alanine Aminotransferase 17 IU/L (<50); Albumin 4.3 g/dL (3.5-5.0); Albumin Globulin Ratio 1.6 (1.0-2.8); Alkaline Phosphatase 74 U/L (38-126); Aspartate Aminotransferase 20 IU/L (17-59); BUN Creatinine Ratio 19.8 (6-22); Bilirubin Total 0.8 mg/dL (0.2-1.3); Blood Urea Nitrogen 17 mg/dL (9-20); Calcium 8.8 mg/dL (8.4-10.2); Carbon Dioxide 23 mmol/L (22-32); Chloride 109 mmol/L (98-107); Cholesterol 157 mg/dL (140-199); Estimated Glomerular Filt Rate > 60 mL/min (>60); Globulin 2.7 g/dL (1.7-4.1); Glucose 114 mg/dL (80-110); HDL Cholesterol 44 mg/dL (40-60); HEMOLYSIS < 15 (0-50); LDL Cholesterol Calculated 92 mg/dL (<100); Potassium 4.4 mmol/L (3.4-5.1); Sodium 140 mmol/L (137-145); Triglycerides 103 mg/dL (35-150)
[2023-10-31 13:25] LABS: Prostate Specific Antigen 0.527 ng/mL (0.10-4.00)
[2023-10-31 13:28] LABS: TSH w/ Reflex to FT4 2.09 uIU/mL (0.47-4.68)
== END ==
LOC: RESP 10:15
PROVIDERS: PCP Family Medicine; Referring Provider Family Medicine; Visit Provider Family Medicine
DX: Z01.810 Encounter for preprocedural cardiovascular examination (principal); Z13.220 Encounter for screening for lipoid disorders; R73.03 Prediabetes; E78.6 Lipoprotein deficiency; E29.1 Testicular hypofunction; Z12.5 Encounter for screening for malignant neoplasm of prostate
CPT/HCPCS: 36415; 80053; 80061; 84153; 84443; 85025; 93005

== ENCOUNTER → 2025-02-16 10:25 | Outpatient (CLI) | payer OTHER, SELFPAY ==
[2025-02-16 10:55] LABS: Add Manual Diff / Slide Review NO; Hematocrit 43.7 % (41-53); Hemoglobin 14.7 g/dL (13.5-17.5); Lymphocytes Absolute Auto 1900 /uL (1100-4500); Mean Corpuscular HGB Conc 33.7 % (30-36); Mean Corpuscular Hemoglobin 29.1 PG (26-34); Mean Corpuscular Volume 86.2 fL (80-100); Platelet Count 251 X10^3/uL (150-400)
[2025-02-16 11:07] LABS: Hemoglobin A1C% w Est Avg Glu 6.2 % (4.0-6.0)
[2025-02-16 11:30] LABS: Alanine Aminotransferase 24 IU/L (<50); Albumin 4.5 g/dL (3.5-5.0); Albumin Globulin Ratio 1.4 (1.0-2.8); Alkaline Phosphatase 79 U/L (38-126); Blood Urea Nitrogen 16 mg/dL (9-20); Calcium 9.3 mg/dL (8.4-10.2); Carbon Dioxide 22 mmol/L (22-32); Chloride 106 mmol/L (98-107); Cholesterol 155 mg/dL (140-199); Estimated Glomerular Filt Rate > 60 mL/min (>60); Globulin 3.2 g/dL (1.7-4.1); Glucose 140 mg/dL (70-99); HDL Cholesterol 49 mg/dL (40-60); HEMOLYSIS < 15 (0-50); Potassium 4.9 mmol/L (3.4-5.1); Sodium 140 mmol/L (137-145); Total Protein 7.7 g/dL (6.3-8.2); Triglycerides 93 mg/dL (35-150)
[2025-02-16 11:47] LABS: Free T3, Triiodothyronine Free 3.55 pg/mL (2.77-5.27); Free T4, Direct Thyroxine 1.38 ng/dL (0.78-2.19)
[2025-02-16 12:00] LABS: Thyroid Stimulating Hormone 2.04 uIU/mL (0.47-4.68)
== END ==
PROVIDERS: PCP Family Medicine; Referring Provider Family Medicine; Visit Provider Family Medicine
DX: E03.9 Hypothyroidism, unspecified (principal); Z13.220 Encounter for screening for lipoid disorders; R73.03 Prediabetes; E78.6 Lipoprotein deficiency; Z12.5 Encounter for screening for malignant neoplasm of prostate
CPT/HCPCS: 36415; 80053; 80061; 83036; 84439; 84443; 84481; 85025; G0103